=== PATIENT | female | born 1955 | race Caucasian/White ===

== ENCOUNTER → 2020-02-05 16:22 | Outpatient (BNVA) | payer SELFPAY | PROVIDERS: Family Provider Family Medicine; Visit Provider Obstetrics & Gynecology | DX: Z12.4 Encounter for screening for malignant neoplasm of cervix (principal) | CPT/HCPCS: 88175 ==

== ENCOUNTER → 2020-05-03 14:47 | Outpatient (BNVA) | payer SELFPAY | PROVIDERS: Family Provider Family Medicine; Referring Provider Dermatology; Visit Provider Dermatology | DX: L57.0 Actinic keratosis (principal); D23.9 Other benign neoplasm of skin, unspecified; L82.1 Other seborrheic keratosis; Z12.83 Encounter for screening for malignant neoplasm of skin; L30.1 Dyshidrosis [pompholyx]; R21 Rash and other nonspecific skin eruption | CPT/HCPCS: 17000; 17003; 99203 ==

== ENCOUNTER → 2020-08-14 15:22 | Outpatient (BNVA) | payer OTHER, SELFPAY | PROVIDERS: Family Provider Family Medicine; Visit Provider Nurse Practitioner Family | DX: Z20.828 Contact with and (suspected) exposure to other viral communicable diseases (principal) | CPT/HCPCS: 87635 ==

== ENCOUNTER → 2022-01-31 12:08 | Outpatient (BNVA) | payer SELFPAY | PROVIDERS: Family Provider Family Medicine; PCP Family Medicine; Visit Provider Family Medicine | DX: M19.032 Primary osteoarthritis, left wrist (principal) | CPT/HCPCS: 73100 ==

== ENCOUNTER → 2022-07-09 16:33 | Outpatient (BNVA) | payer SELFPAY | PROVIDERS: Family Provider Family Medicine; PCP Family Medicine; Visit Provider Nurse Practitioner | DX: S92.002A Unspecified fracture of left calcaneus, initial encounter for closed fracture (principal); X58.XXXA Exposure to other specified factors, initial encounter | CPT/HCPCS: 73610 ==

== ENCOUNTER → 2022-07-26 14:21 | Outpatient (BNVA) | payer SELFPAY | PROVIDERS: Family Provider Family Medicine; PCP Family Medicine; Visit Provider Podiatrist Foot & Ankle Surgery | DX: S92.002A Unspecified fracture of left calcaneus, initial encounter for closed fracture (principal); X58.XXXA Exposure to other specified factors, initial encounter | CPT/HCPCS: 73650 ==

== ENCOUNTER → 2022-08-09 14:35 | Outpatient (BNVA) | payer SELFPAY | PROVIDERS: Family Provider Family Medicine; PCP Family Medicine; Visit Provider Podiatrist Foot & Ankle Surgery | DX: S92.002A Unspecified fracture of left calcaneus, initial encounter for closed fracture (principal); X58.XXXA Exposure to other specified factors, initial encounter | CPT/HCPCS: 73650 ==

== ENCOUNTER → 2022-08-23 13:40 | Outpatient (BNVA) | payer SELFPAY | PROVIDERS: Family Provider Family Medicine; PCP Family Medicine; Visit Provider Podiatrist Foot & Ankle Surgery | DX: S92.002A Unspecified fracture of left calcaneus, initial encounter for closed fracture (principal); X58.XXXA Exposure to other specified factors, initial encounter | CPT/HCPCS: 73650 ==

== ENCOUNTER → 2022-09-06 09:50 | Outpatient (BNVA) | payer SELFPAY | PROVIDERS: Family Provider Family Medicine; PCP Family Medicine; Visit Provider Podiatrist Foot & Ankle Surgery | DX: M79.672 Pain in left foot (principal); S99.912A Unspecified injury of left ankle, initial encounter; S92.002A Unspecified fracture of left calcaneus, initial encounter for closed fracture; X58.XXXA Exposure to other specified factors, initial encounter | CPT/HCPCS: 73650 ==

== ENCOUNTER → 2022-11-15 09:09 | Outpatient (BNVA) | payer MEDICARE, SELFPAY | PROVIDERS: Family Provider Family Medicine; PCP Family Medicine; Visit Provider Podiatrist Foot & Ankle Surgery | DX: S92.002A Unspecified fracture of left calcaneus, initial encounter for closed fracture (principal); X58.XXXA Exposure to other specified factors, initial encounter | CPT/HCPCS: 99213 ==

== ENCOUNTER → 2023-05-24 15:30 | Outpatient (BNVA) | payer MEDICARE, SELFPAY | PROVIDERS: Family Provider Family Medicine; PCP Family Medicine; Visit Provider Nurse Practitioner Family | DX: L57.0 Actinic keratosis (principal); B07.8 Other viral warts; L82.1 Other seborrheic keratosis; D22.5 Melanocytic nevi of trunk | CPT/HCPCS: 17004; 99213 ==

== ENCOUNTER 2023-08-09 08:51 | Outpatient (CLI) | payer MEDICARE, SELFPAY ==
--- NOTE | 2023-08-09 08:54 | MM_ITS ---
WS: [id number] BILATERAL SCREENING DIGITAL TOMOSYNTHESIS MAMMOGRAM WITH CAD HISTORY: screening COMPARISON: 06/13/2016 Bilateral CC and MLO views with tomosynthesis and synthetic mammography submitted. Computer aided det ection analyzed. Breast composition: The breasts are extremely dense, which lowers the sensitivity of mammography. No suspicious masses, microcalcifications or architectural distortion. Numerous bilateral asymmetries an d calcifications within each breast. Very dense fibroglandular tissue. No distortion. IMPRESSION: MM/[place] [id number] BI-RADS: 2-Benign FOLLOW UP: 1 Year Follow-up
== END 2023-08-09 08:52 | disposition home or self-care (01) ==
LOC: RAD 08:51
PROVIDERS: Family Provider Family Medicine; PCP Family Medicine; Visit Provider Family Medicine
DX: Z12.31 Encounter for screening mammogram for malignant neoplasm of breast (principal)
CPT/HCPCS: 77063; 77067

== ENCOUNTER → 2024-02-04 16:11 | Outpatient (BNVA) | payer MEDICARE, SELFPAY | PROVIDERS: Family Provider Family Medicine; PCP Family Medicine; Visit Provider Family Medicine | DX: I47.10 Supraventricular tachycardia, unspecified (principal); Z01.419 Encounter for gynecological examination (general) (routine) without abnormal findings | CPT/HCPCS: 80053; 84443; 85025; 93005 ==

== ENCOUNTER → 2024-03-13 09:00 | Outpatient (BNVA) | payer MEDICARE, SELFPAY | PROVIDERS: Family Provider Family Medicine; PCP Family Medicine; Visit Provider Internal Medicine | DX: I47.10 Supraventricular tachycardia, unspecified (principal); I49.1 Atrial premature depolarization; I49.3 Ventricular premature depolarization; I47.29 Other ventricular tachycardia; I47.19 Other supraventricular tachycardia | CPT/HCPCS: 93246 ==

== ENCOUNTER → 2024-05-09 10:25 | Outpatient (BNVA) | payer MEDICARE, SELFPAY | PROVIDERS: Family Provider Family Medicine; PCP Family Medicine; Visit Provider Internal Medicine | DX: I49.8 Other specified cardiac arrhythmias (principal); R07.9 Chest pain, unspecified | CPT/HCPCS: 93005; 99204 ==

== ENCOUNTER → 2024-05-27 08:19 | Outpatient (BNVA) | payer MEDICARE, SELFPAY | PROVIDERS: Family Provider Family Medicine; PCP Family Medicine; Visit Provider Nurse Practitioner Family | DX: D48.5 Neoplasm of uncertain behavior of skin (principal); L57.0 Actinic keratosis; L82.1 Other seborrheic keratosis; D22.5 Melanocytic nevi of trunk | CPT/HCPCS: 11102; 17000; 17110; 99213 ==

== ENCOUNTER 2024-06-02 07:10 | Outpatient (CLI) | payer MEDICARE, SELFPAY ==
--- NOTE | 2024-06-02 | ECG_ITS ---
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 Interpretive Statements EXERCISE NUCLEAR STRESS TEST EXERCISE DATA: The patient was exercised by Matt protocol. Baseline heart rate was 68 beats per minute. Baseline blood pressure was 143/77 millimeters of mercury. Maximal predicted heart rate was 154 beats per minute. Maximum heart rate achieved was 154 which was 100% of the maximum predicted heart rate. Maximum blood pressure was 163/56 millimeters of mercury. Total exercise time was 9 minutes. Maximum METs achieved was 10.2. The reason for ending the test was completion of protocol. The patient complained of shortness of breath during the stress test, which then resolved at the end of the test. ELECTROCARDIOGRAM: BASELINE: Showed sinus rhythm, normal axis, no significant ST-T changes at the baseline noted. [] EXERCISE: At the peak exercise level, [] No significant ST-T changes suggestive of ischemia noted. [] RECOVERY: During the recovery period, heart rate dropped appropriately. No significant ST-T changes in the recovery suggestive of ischemia noted. [] CONCLUSION: 1. Exercise capacity is good 2. Heart rate response was appropriate. 3. Blood pressure response was appropriate. 4. Symptoms not suggestive of ischemia. 5. Electrocardiogram portion of the stress test was not suggestive of ischemia. 6. Nuclear scan will be documented separately. Electronically Signed On 06-05-2024 10:31:41 CDT by Abhilash Fuentes M.D. [email or web address]
[2024-06-02 07:30] VITALS: BMI 22.4
--- NOTE | 2024-06-02 07:32 | NMCV_ITS ---
NM olivia perf SPECT r/s* [id number] Laney Tariq Age: 68 Gender: F : 1955 Exam Date: 06/02/2024 08:20 Ordering Phys: Abhilash Fuentes M.D ([email or web address]) Technologist: FRANCE Gomez Exam Location: [facility] Indications: CP STRESS TEST Please see separate stress test report in [facility] for full findings IMAGE PROTOCOL Rest/Stress 1 Exercise Day Radiopharmaceutical Dose (mCi) Administration Site Administered by Rest: Tc-99m 10.8 IV FRANCE Hay Sestamibi Stress:Tc-99m 32.5 IV FRANCE Hay Sestamibi Rest: 02-Jun-2024 60 Discovery 630 Stress: 02-Jun-2024 30 Discovery 630 Radiopharmaceutical was injected at 94% maximum heart rate. Images obtained in supine and prone position. SPECT RESULTS Technical Quality: Good Raw Data Analysis: Normal Image Corrections: No attenuation or motion correction applied Summed Stress Score: 0 Summed Rest Score: 1 Summed Difference Score: 0 PERFUSION FINDINGS Medium sized area of perfusion defect noted in mid to distal anterior wall suggestive of old myocardial infarction without ischemia. Medium sized area of fixed perfusion defect noted in inferoseptal basal to mid inferoseptal segment surrounded by large area of patchy deep diffuse tracer uptake in inferior inferolateral wall suggestive of old myocardial infarction surrounded by a large area of tip-infarct ischemia. FUNCTIONAL RESULTS (calculated via Gated SPECT) Stress Image LV EF (%): 71 Stress EDV (mL):86 TID: 0.91 Stress ESV (mL):25 FUNCTIONAL FINDINGS: There is normal left ventricular systolic function. IMPRESSIONS Medium sized area of fixed perfusion defect noted in mid to distal anterior wall of left ventricle and apex without significant reversibility suggestive of old myocardial infarction versus scarring. Medium sized area of fixed perfusion fat noted in basal to mid inferoseptal wall surrounded by a large area of patchy decreased tracer uptake noted throughout inferior and inferolateral wall suggestive of medium sized area of old myocardial infarction surrounded by large area of tip-infarct ischemia. EKG segment will be documented separately. Mary Domínguez MD (Electronically Signed) Final Date: 02 June 2024 13:11 S
[2024-06-02 09:35] VITALS: BP 132/84; PULSE 83
== END 2024-06-02 07:11 | disposition home or self-care (01) ==
PROVIDERS: Family Provider Family Medicine; PCP Family Medicine; Visit Provider Internal Medicine
DX: R07.9 Chest pain, unspecified (principal); R06.02 Shortness of breath; R94.39 Abnormal result of other cardiovascular function study
CPT/HCPCS: 36415; 78452; 93017; A9500

== ENCOUNTER 2024-06-09 06:52 | Outpatient (CLI) | payer MEDICARE, SELFPAY ==
--- NOTE | 2024-06-09 07:00 | USCV_ITS ---
Laney Tariq Age: 68 Gender: F : 1955 Exam Date: 06/09/2024 07:12 Ordering Phys: Abhilash Fuentes M.D ([email or web address]) Technologist: [place] [facility] [place]: cp sob BP: 107 / 64 HR: 56 Rhythm: Sinus Technical Quality: Adequate MEASUREMENTS (Male / Female) Normal Values 2D ECHO LV Diastolic Diameter PLAX 4.3 cm 4.2 - 5.9 / 3.9 - 5.3 cm IVS Diastolic Thickness 1.1 cm 0.6 - 1.0 / 0.6 - 0.9 cm IVS Systolic Thickness 1.4 cm LVPW Diastolic Thickness 1.3 cm 0.6 - 1.0 / 0.6 - 0.9 cm LVPW Systolic Thickness 1.7 cm LV Ejection Fraction 2D Teich 62.8 % LV Ejection Fraction MOD 4C 71.5 % LV Ejection Fraction MOD 2C 64.7 % LV Ejection Fraction 2C AL 66.0 % IVC Diameter 1.6 cm M-MODE LA Ao Ratio MM 1.1 AV Cusp Separation MM 2.0 cm DOPPLER AV Peak Velocity 127.7 cm/s LVOT Peak Velocity 76.0 cm/s MV Peak Velocity 93.0 cm/s MV Area PHT 2.9 cm squared Mitral E to A Ratio 1.0 TV Peak Velocity 215.0 cm/s TR Peak Velocity 224.0 cm/s TR Peak Gradient 20.1 mmHg TV Peak E Velocity 63.0 cm/s PV Peak Velocity 72.0 cm/s FINDINGS Left Ventricle Normal left ventricular size, systolic function and wall thickness, with no regional wall motion abnormalities. Left ventricular ejection fraction is estimated at 60 %. Grade I/IV diastolic dysfunction (abnormal relaxation filling pattern), normal to mildly elevated filling pressures. Right Ventricle The right ventricle is normal in size and function. RVSP could not be calculated due to incomplete tricuspid regurgitation velocity profile. Right Atrium The right atrium is normal in size. Left Atrium The left atrium is normal in size. Mitral Valve Moderately thickened mitral valve. No mitral valve stenosis. Moderate mitral valve regurgitation. Aortic Valve Structurally normal aortic valve without significant sclerosis or stenosis. There is no aortic regurgitation. Tricuspid Valve Trace tricuspid valve regurgitation. Pulmonic Valve Structurally normal pulmonic valve without significant stenosis. There is no pulmonic regurgitation. Pericardium Normal pericardium without effusion. Aorta Normal ascending aorta dimension. IVC The inferior vena cava appears normal. CONCLUSIONS Normal left ventricular size, systolic function and wall thickness, with no regional wall motion abnormalities. Left ventricular ejection fraction is estimated at 60 %. Grade I/IV diastolic dysfunction (abnormal relaxation filling pattern), normal to mildly elevated filling pressures. Moderately thickened mitral valve. No mitral valve stenosis. Moderate mitral valve regurgitation. There is no pericardial effusion. Right atrial pressure is around 5 mm of mercury. Mary Domínguez MD (Electronically Signed) Final Date: 10 June 2024 20:52 S
== END 2024-06-09 06:53 | disposition home or self-care (01) ==
PROVIDERS: Family Provider Family Medicine; PCP Family Medicine; Visit Provider Internal Medicine
DX: I50.30 Unspecified diastolic (congestive) heart failure (principal); I34.0 Nonrheumatic mitral (valve) insufficiency; I34.81 Nonrheumatic mitral (valve) annulus calcification; R07.9 Chest pain, unspecified; R06.02 Shortness of breath
CPT/HCPCS: 93306

== ENCOUNTER → 2024-07-09 12:50 | Outpatient (BNVA) | payer MEDICARE, SELFPAY | PROVIDERS: Family Provider Family Medicine; PCP Family Medicine; Visit Provider Internal Medicine | DX: I47.29 Other ventricular tachycardia (principal); R94.39 Abnormal result of other cardiovascular function study; I47.19 Other supraventricular tachycardia | CPT/HCPCS: 99214 ==

== ENCOUNTER 2024-07-11 07:25 | Outpatient (CLI) | payer MEDICARE, SELFPAY ==
--- NOTE | 2024-07-10 09:50 | PC.NURSE ---
Called patient on 07/09/24 @ 1236 and left message for patient to call back about pre cath instructions. 07/10/24 0950 - called patient, no answer, left message to return call for pre cath instructions.
[2024-07-11] VITALS (19 sets, daily range): BP systolic 100–135; BP diastolic 58–85; PULSE 52–72; RESP 8–20; TEMP 36.5; O2SAT 94–100; BMI 22.8
--- NOTE | 2024-07-11 07:30 | XACV_ITS ---
Ht: 165 cm Wt: 62 kg BSA: 1.69 m2 Gender: Female : 1955 Any Known Allergies: No known allergies Exam Priority: Routine Procedure(s): Procedure Description: Diagnostic procedure Procedure Description: Left Heart Catheterization Procedure Description: Left ventriculography Procedure Description: Coronary Angiography Diagnostic Cath Status: Elective Diagnostic Findings * INDICATION: Ventricular tachycardia/Abnormal stress test. * No significant disease noted in the Left Main, Left Anterior Descending, Right, or Circumflex coronary arteries. * Coronary angiography shows right dominance. Conclusions 1. No significant disease noted in the Left Main, Left Anterior Descending, Right, or Circumflex coronary arteries. 2. Normal left ventricular systolic function. Ejection fraction of 55%. Recommendations * Aggressive risk factor modification. * EP evaluation for VT episodes on monitor. * Outpatient cardiology follow up in 2 weeks. Interventional RX Recommendation: medical therapy and/or counseling Diagnostic RX Recommendation: medical therapy and/or counseling Anticoagulation: Heparin Ventriculography Ejection Fraction: 55.0 % Pressures Phase:Rest AO : 104 / 64 ( 81 ) @ 9:30:00 AM 112 / 59 ( 81 ) @ 9:36:00 AM 115 / 56 ( 80 ) @ 9:36:00 AM LV : 110 / -2 / 14 @ 9:35:00 AM 108 / -2 / 16 @ 9:36:00 AM 110 / -2 / 14 @ 9:36:00 AM Valves Phase:DefaultPhase AV : 0.0 @ 9:49:44 AM AV Mean Gradient: 0.0 @ 9:49:44 AM Clinical Evaluation EBL: 5mL-10mL Procedural Details Procedure Consent Obtained. Pre-Procedure Time Out. Identified patient by full name and date of as verbalized by the patient/guarantor. Does the consent match the physician's order: Yes. Accurate & Complete Informed Consent: Yes. Inpatient/Outpatient History & Physical on Chart: Yes. If H&P is completed, is and addenduem needed: No; If yes, is the addendum complete: N/A. Visualize and Verify Site with Patient/Guarantor: N/A. Relevant Radiology Images available: N/A. Pre-op teaching completed and patient verbalized understanding. The risks, benefits, and alternatives of sedation and/or procedure were discussed by physician. The patient agrees to continue. Procedure started. [facility] Clinical Fraility Score: 2: Well. 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 Chest Pain Symptom Assessment: Non-anginal Chest Pain. Cardiovascular Instability: No. Correct patient, site and procedure confirmed by cath team. PERRLA. 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 Lungs clear x 5 lobes. IV Site on Arrival: 20 gauge in the left anticubital. IV Fluids: 0.9% NaCl at KVO. 0 mL infused prior to manager cardiac cath. Pre Procedural Pulses: bilateral dorsalis pedis was Doppled. Pre Procedural Pulses: right posterior tibial was 1+. Pre Procedural Pulses: left posterior tibial was Doppled. Pre Procedural Pulses: bilateral radial was 3+. Oxygen started at 2liters/min via nasal canula. right groin was prepped with chloroprep then draped in the usual sterile fashion. right radial was prepped with chloroprep then draped in the usual sterile fashion. Baseline sample Acquired. HR: 54 BPM. Physician arrived. Equipment: 6F - Radial. Cardiac Cath Pack. ACIST Manifold Kit Model BT 2000. Heparinized Saline (2 units/mL), 1000 mL bag. Physician scrubbed in. Immediate Pre-Procedure Time Out. Correct Patient: Yes; Correct Procedure: Yes; Correct Site: Yes; Correct Patient Position: Yes; Correct Supplies: Yes; Dried Flammable Prep: Yes; Blood Products Available: N/A;. Lidocaine 1% infiltrated to the right radial. Arterial access obtained. A 5 cuban TIG catheter in over wire. Multiple views taken of left coronary artery. Catheter redirected to the RCA. Multiple views taken of right coronary artery. Catheter removed over the exchange wire. A 5 cuban Angled Pig catheter in over wire. EDP Sample taken: LV 110/-3,14; HR: 56 BPM; SpO2: 99%. LV gram performed in HALL @ 10 mL/second for a total of 30 mL. EDP Sample taken: LV 108/-3,16; HR: 55 BPM; SpO2: 99%. Pullback taken: LV 110/-3,14; AO 112/59(81); Mean: 0mmHg, Peak to Peak: 0mmHg, SEP: 5sec/min; HR: 55 BPM; SpO2: 99%. Physician scrubbed out. Catheter removed over the exchange wire. A TR Band was successful obtaining hemostatsis at the Right Radial artery insertion site. TR band placed. Hemostasis obtained. Post Procedure: Pulses reassessed and unchanged. PERRLA. 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 No VTE prophylaxis required. Medication's Wasted: Lidocaine 1% = 18 mL. Medication's Wasted: Nitro = 49.8 mg. Post-op diagnosis: non obstructive CAD. Contrast type used: Visipaque 320 mgI/mL, 500 mL bottle. Complications: none. Total IV fluids: 15 mL. Medication's Wasted: Heparin = 3000 units. Estimated blood loss: 5mL-10mL. Responsiveness - Normal response to verbal stimuli; alert and oriented, PERRLA. Airway - Unaffected, no intervention required; spontaneous ventilation. Circulation: W/N/L, pulses unchanged. Nausea/Vomiting: No. Procedure completed. Patient transferred by wheelchair to CPRU. Vital chart was stopped. Access Site Site: Right Radial artery Sheath Size: 6 Fr Hemostasis Method: TR Band Hemostasis Success: Successful Procedure Medications Start: 9:22 AM Stop: 9:22 AM Medication: Versed Amount: 1 mg Route: I.V. Start: 9:22 AM Stop: 9:22 AM Medication: Fentanyl Amount: 50 mcg Route: I.V. Start: 9:25 AM Stop: 9:25 AM Medication: Versed Amount: 1 mg Route: I.V. Start: 9:27 AM Stop: 9:27 AM Medication: Nitrogylcerin Amount: 200 mcg Route: I.A. Start: 9:30 AM Stop: 9:30 AM Medication: Heparin Amount: 5000 units Route: I.V. I, the attending physician, have reviewed and verified all procedure medications. Yes, all medications given per verbal order History/Risk Factors Hypertension: No Dyslipidemia: Yes Peripheral Arterial Disease (PAD): No Myocardial Infarction (OR): No Obesity: No Renal Disease: No Prior Interventions PCI: No CABG: No Valve Surgery: No Report Signatures Finalized by Abhilash Fuentes MD on 07/15/2024 11:09 AM
[2024-07-11] MEDS: diphenhydrAMINE 50 mg Capsule PO (07:45)
[2024-07-11 07:50] LABS: Basophils % 0.4 %; Eosinophils # 0.2 10^3/uL (0.0-0.8); Eosinophils % 3.2 %; Hematocrit 40.6 % (36-47); Lymphocytes % 37.6 %; Mean Corpuscular HGB Conc 32.3 g/dL (30-55); Mean Corpuscular Hemoglobin 29.3 pg (27-33); Mean Corpuscular Volume 90.8 fl (85-98); Mean Platelet Volume 8.5 fL (7.4-10.4); Monocytes # 0.4 10^3/uL (0.2-0.9); Monocytes % 7.2 %; Neutrophils % 51.4 %; Nucleated Red Blood Cells % 0 %; Platelet Count 259 10^3/cmm (157-399); Red Blood Count 4.47 10^6/uL (3.85-5.65); Red Cell Distribution Width 13.2 % (12.1-15.1); White Blood Count 5.26 10^3/uL (3.29-11.43)
[2024-07-11 08:06] LABS: Anion Gap 13.1 (5-19); Blood Urea Nitrogen 13 mg/dL (8-23); Calcium 8.9 mg/dL (8.5-10.5); Carbon Dioxide 27 mmol/L (22-29); Chloride 105 mmol/L (98-107); Glomerular Filtration Rate 83.7 mL/min (90-130); Glucose 99 mg/dL (65-115); Osmolality Calculated 292 mOsm/kg (285-295); Potassium 4.1 mmol/L (3.5-5.1); Sodium 141 mmol/L (136-145)
--- NOTE | 2024-07-11 09:23 | P.HPUD_ITS ---
Surgery/Procedure H&P Update DATE OF PROCEDURE: July 11, 2024 DATE H&P PERFORMED: 07/09/24 H&P UPDATE INFORMATION: I have reviewed H&P completed within last 30 days, I have examined patient prior to procedure and No changes to prior documentation PREOP DIAGNOSIS: Ventricular tachycardia/Abnormal stress test PRIMARY INDICATION FOR PROCEDURE: Ventricular tachycardia/Abnormal stress test PLANNED PROCEDURE: Operation Date: 07/11/24 08:30 Proposed Procedures p Cardiac Catheterization - [facility] w/wo LV & Coros(Left) - Abhilash Fuentes M.D Possible percutaneous coronary intervention PATIENT REASSESSED PRIOR TO SEDATION, WITH NO CHANGE NOTED: Yes PHYSICAL EXAM: alert, oriented x 3, clear to auscultation bilaterally and regular rate & rhythm AIRWAY EVAL/ANESTHESIA PLAN: normal airway, ASA III, Local Anesthesia, Risks, benefits & alternatives of sedation and/or procedure discussed and Patient agrees to continue as planned ADDITIONAL INFORMATION: Moderate sedation
--- NOTE | 2024-07-11 09:55 | PC.NURSE ---
Recovery Arrived post cath to CPRU 4. Pt alert and oriented, breathing even and non-labored no room air. Denies pain. TR band to right radial . Site asymptomatic. No bleeding or hematoma noted. Pt educated on activity restrictions, verbalized understanding. Placed on bedside gambling monitor. at bedside. No needs verbalized at this time.
--- NOTE | 2024-07-11 11:08 | PC.NURSE ---
TR Band Started releasing air from right radial TR band. 1 ml air released at 1055. At 1105 released another 2 ml air and access site started to bleed. 3 ml air placed back into TR band. No hematoma noted. After air replacement no signs of bleeding. Will continue to monitor. Will attempt to release air after waiting additional 30minutes.
--- NOTE | 2024-07-11 14:02 | PC.NURSE ---
Tr band removal note 2nd attempt at TR band removal successful. Started to release air at 1200. 1-2ml air released from TR band every 5-15minutes until band deflated. Band deflated and removed at 1300. Site asymptomatic, no signs of bleeding or hematoma. Radial pulse palpable. Clean large bandaid applied over site.
== END 2024-07-11 14:04 | disposition home or self-care (01) ==
PROVIDERS: PCP Family Medicine; Visit Provider Internal Medicine
DX: R94.39 Abnormal result of other cardiovascular function study (principal); I10 Essential (primary) hypertension; E78.5 Hyperlipidemia, unspecified; I47.29 Other ventricular tachycardia; I47.19 Other supraventricular tachycardia
CPT/HCPCS: 36415; 80048; 85025; 93458; 96365; 96374; 99152; C1769; C1887; C1894; J1644; J2250; J3010; J3490; J7030; Q0163; Q9967

== ENCOUNTER → 2025-06-01 14:05 | Outpatient (BNVA) | payer MEDICARE, SELFPAY | PROVIDERS: PCP Family Medicine; Visit Provider Dermatology | DX: D23.62 Other benign neoplasm of skin of left upper limb, including shoulder (principal); D23.71 Other benign neoplasm of skin of right lower limb, including hip; D18.01 Hemangioma of skin and subcutaneous tissue; L81.4 Other melanin hyperpigmentation; L81.5 Leukoderma, not elsewhere classified; D23.22 Other benign neoplasm of skin of left ear and external auricular canal; L57.0 Actinic keratosis | CPT/HCPCS: 17000; 99213 ==